=== PATIENT | male | born 1965 | race Caucasian/White ===

== ENCOUNTER 2016-08-27 19:29 | Emergency (ER) | payer OTHER ==
[~2016-08-27] VITALS: Ht 185.4 cm; Wt 53.8 kg
[2016-08-27 19:55] LABS: HEMATOCRIT 46.4 % (38.0-50.0); MCHC 34.7 G/DL (30.0-36.0); MCV 89.4 FL (86-99); MEAN PLAT.VOLUME 9.9 uM^3 (9.0-12.4); PLATELET COUNT 235 K/uL (156-360); RBC DIS.WIDTH-CV 12.1 % (11.8-14.6); RBC DIS.WIDTH-SD 39.8 % (39-53); RED BLOOD COUNT 5.19 M/uL (4.00-5.50); WHITE BLOOD COUNT 7.6 K/uL (4.1-10.2)
[2016-08-27 20:03] LABS: CHLORIDE 104 mEq/L (99-109); POTASSIUM 3.9 mEq/L (3.7-5.4); SODIUM 140 mEq/L (136-147)
[2016-08-27 20:06] LABS: GLUCOSE 101 mg/dL (70-99)
[2016-08-27 20:07] LABS: ANION GAP 11 MEQ/L (2-14)
[2016-08-27 20:08] LABS: TOTAL BILIRUBIN 0.8 mg/dL (0.0-1.0)
[2016-08-27 20:09] LABS: ALKALINE PHOSPHATASE 81 IU/L (3-129)
[2016-08-27 20:10] LABS: UREA NITROGEN (BUN) 13 mg/dL (9-23)
[2016-08-27 20:28] LABS: GFR ESTIMATE (CALCULATED) > 59 mL/min/
[2016-08-27] MEDS ORDERED: NORCO 5/3251 TABLET PO (22:05)
[2016-08-27 22:46] VITALS: BP 145/72
== END 2016-08-27 22:46 | disposition home or self-care (01) ==
LOC: EME 19:29
PROVIDERS: Emergency Medicine
DX: S22.31XA Fracture of one rib, right side, initial encounter for closed fracture (principal); S70.01XA Contusion of right hip, initial encounter; V29.9XXA Motorcycle rider (driver) (passenger) injured in unspecified traffic accident, initial encounter; Y92.410 Unspecified street and highway as the place of occurrence of the external cause; Z88.5 Allergy status to narcotic agent
CPT/HCPCS: 70450; 71260; 72125; 74177; 80053; 85027; 99281; 99284